=== PATIENT | male | born 1985 | race Caucasian/White ===

== ENCOUNTER 2018-02-27 08:50 | Day surgery (SDC) | payer BC ==
[~2018-02-27] VITALS: Ht 182.9 cm; Wt 122.6 kg
[2018-02-27] VITALS (7 sets, daily range): BP systolic 100–141; BP diastolic 50–79; PULSE 48–67; TEMP 97.2–98.2
== END 2018-02-27 14:03 | disposition home or self-care (01) ==
LOC: SDCO 08:50
DX: N35.9 Urethral stricture, unspecified (principal); E66.9 Obesity, unspecified; Z68.35 Body mass index [BMI] 35.0-35.9, adult; Z83.3 Family history of diabetes mellitus; Z82.49 Family history of ischemic heart disease and other diseases of the circulatory system
CPT/HCPCS: J0690; J1885; J2704; J3010; J7120